=== PATIENT | male | born 1995 | race African-American/Black ===

== ENCOUNTER 2019-08-16 22:51 | Emergency (ER) | payer OTHER ==
[~2019-08-16] VITALS: Ht 177.8 cm; Wt 83.9 kg
[2019-08-16 23:20] VITALS: BP 93/50
--- NOTE | 2019-08-16 23:23 | NUR ---
PT TO LOBBY VSS.
--- NOTE | 2019-08-16 23:39 | NUR ---
PT TAKEN TO XRAY FROM [facility]
--- NOTE | 2019-08-16 23:47 | NUR ---
PT RETURN TO [facility]
--- NOTE | 2019-08-17 00:10 | NUR ---
PT TAKEN TO BED 4
--- NOTE | 2019-08-17 01:00 | NUR ---
24 Y/O MALE PRESENTS TO ED, C/O OF RIGHT FINGER PAIN, 5/10. PT STATES PLAYING FOOTBALL A COUPLE OF HOURS [address]RE[address] [employer] AND POSSIBLY INJURING FINGER. PT HAS LIMITED MOBILITY ON FINGER. BILAT STRONG RADIAL PULSES. DENIES PAIN RADIATING. PT VSS. ERMD AWARE. WILL CONTINUE TO MONITOR.
--- NOTE | 2019-08-17 01:07 | NUR ---
Dr. Hoover examining patient.
[2019-08-17 01:45] VITALS: BP 101/55
--- NOTE | 2019-08-17 01:45 | NUR ---
PT DISCHARGED WITH PAPERWORK. NO RX PROVIDED. EDUCATED REGARDING NONPHARMACOLOGICAL TECHNIQUES FOR PAIN MANAGEMENT. EDCUATED PT REGARDING D/C DIAGNOSIS AND INSTRUCTIONS. PT VERBALIZED UNDERSTANDING OF TEACHING. TOLD PT TO FOLLOW UP WITH PCP AND WHEN TO RETURN TO ED. PT VSS. ALL QUESTIONS ANSWERED.
== END 2019-08-17 01:45 | disposition home or self-care (01) ==
LOC: MED 22:51
DX: M20.011 Mallet finger of right finger(s) (principal); W18.39XA Other fall on same level, initial encounter; Y93.61 Activity, american tackle football; Y92.89 Other specified places as the place of occurrence of the external cause; Y99.8 Other external cause status
CPT/HCPCS: 73130; 99283